=== PATIENT | female | born 1985 | race Hispanic/Latino ===

== ENCOUNTER → 2023-09-18 | Emergency (ER) | payer BC ==
[~2023-09-18] VITALS: Ht 157.5 cm; Wt 78.9 kg
[2023-09-18] VITALS (7 sets, daily range): BP systolic 109–127; BP diastolic 78–91
[~2023-09-18] MED LIST: BACTRIM DS1 TAB PO; DOXYCYC MONO100 M2 PO; KEFLEX500 MG PO; KETOROLAC TROMETHAMINE 15 MG/ML SDV IV ONE; LORTAB 5-325 MG1 TAB PO; LORTAB 7.5-3251 TAB PO; METOCLOPRAMIDE HCL 10 MG/2 ML SDV IV ONE; PERCOCET 10/31 COMBO PO; SILVADENE1 % EX
[2023-09-18 11:26] LABS: BASO% 0.4 % (0-3); EOS% 2.1 % (0-8); HEMATOCRIT 43.9 % (37.0-47.0); HEMOGLOBIN 14.3 g/dl (12.0-16.0); IMMATURE GRANULOCYTES 0.3 % (0.0-5.0); LYMPH% 26.4 % (15-41); MEAN CELL VOLUME 85.4 fL CALC (80.0-100.0); MEAN CORPUSCULAR HGB 27.8 pG CALC (26.0-32.0); MEAN CORPUSCULAR HGB CONC 32.6 g/dL CAL (32.0-36.0); MONO% 7.1 % (2-13); NEUT# 4.33 thou/uL (2.00-7.15); NEUT% 63.7 % (42-76); RED BLOOD COUNT 5.14 mill/uL (4.20-5.60)
[2023-09-18 11:33] LABS: ALBUMIN 4.5 g/dL (3.2-5.0); CREATININE 0.6 mg/dL (0.5-1.0); POTASSIUM 4.1 mmol/l (3.5-5.1)
[2023-09-18 11:35] LABS: BILIRUBIN, TOTAL 0.9 mg/dL (0.02-1.3)
[2023-09-18 11:49] LABS: URINE BILIRUBIN - DIPSTICK Negative (NEGATIVE); URINE BLOOD DIPSTICK Negative (NEGATIVE); URINE COLOR Yellow; URINE GLUCOSE - DIPSTICK Negative (NEGATIVE); URINE KETONE Negative (NEGATIVE); URINE LEUK ESTERASE Negative (NEGATIVE); URINE NITRITE - DIPSTICK Negative (Negative); URINE PH 6.5 (4.5-8.0); URINE PROTEIN - DIPSTICK Negative (NEG-TRACE); URINE UROBILINOGEN - DIPSTICK 0.2 E.U./dL (0.2)
== END | disposition short-term general hospital (02) | DRG 392 ==
LOC: ED 10:16
PROVIDERS: Emergency Medicine
DX: R10.31 Right lower quadrant pain (principal); I10 Essential (primary) hypertension